=== PATIENT | male | born 1970 | race Caucasian/White ===

== ENCOUNTER → 2016-12-27 | Outpatient (CLI) | payer OTHER | LOC: BMCIMAGING 14:14 | PROVIDERS: ATTEND Internal Medicine Rheumatology | DX: S62.001K Unspecified fracture of navicular [scaphoid] bone of right wrist, subsequent encounter for fracture with nonunion (principal); M25.741 Osteophyte, right hand ==

== ENCOUNTER → 2017-04-01 | Outpatient (CLI) | payer OTHER | LOC: FIMAGING 12:45 | PROVIDERS: ATTEND Orthopaedic Surgery | DX: Z01.818 Encounter for other preprocedural examination (principal); M17.12 Unilateral primary osteoarthritis, left knee; M25.462 Effusion, left knee; M23.42 Loose body in knee, left knee ==

== ENCOUNTER 2017-04-08 10:05 | Inpatient (IN) | payer OTHER ==
--- NOTE | 2017-04-08 06:38 | PDIAF ---
- Diagnosis Diagnosis: left knee djd Code Status: Full Code - Medication Management Discharge Medications: Medications to Continue on Transfer Aspirin [Aspirin 81mg (OTC)] 81 mg PO DAILY 11/19/12 [Last Taken 11/18/12] Mes[place]-3 Fatty Acids [Fish Oil 1000 mg (OTC)] 1,000 mg PO DAILY 11/19/12 [Last Taken 11/12/12] Adalimumab [Humira] 40 mg SQ Q14D 03/21/17 [Last Taken Unknown] Atorvastatin Calcium [Lipitor 20 mg (*)] 20 mg PO DAILY 03/21/17 [Last Taken Unknown] Ibuprofen [Motrin (*)] 200 mg PO DAILY PRN 03/21/17 [Last Taken Unknown] Lisinopril [Zestril 20 mg (*)] 20 mg PO DAILY 03/21/17 [Last Taken Unknown] Multivitamins [Multivitamin (*)] 1 each PO DAILY 03/21/17 [Last Taken Unknown] Discharge Medications: Refer to the Discharge Home Medication list for PRN reason. - Orders Services needed: Home Care, Physical Therapy Home Care Face to Face: I certify that this patient was under my care and that I had the required [id number] encounter meeting the encounter requirements on the discharge day. My findings support the fact that the patient is homebound as defined in Home Care Face to Face Continued: CMS Chapter 7 Medicare Benefits Manual 30.1.1 , The condition of the patient is such that there exists a normal inability to leave home and consequently, leaving home would require a considerable and taxing effort. Activity/Weight Bearing Restrictions: wbat. rom as tolerated. daily dressing changes. no soaking or immersion. f/u at two weeks. seek attn for increasing redness, swelling, drainage, discharge - Follow Up Care Current Providers and Referrals: Wei Lopez MD [Primary Care Provider] -
--- NOTE | 2017-04-08 06:38 | PDHPUP ---
History & Physical Update H&P update statement: This history and physical update is based on an assessment of the patient which was completed after admission or registration (within 24 hours), but prior to the surgery/procedure.
[~2017-04-08 10:05] MED LIST: ROPIVACAINE 0.2% 80 MG, EPINEPHrine 0.2 MG, KETOROLAC TROMETHAMINE 30 MG, morphINE 10 M... IU ONE; TRANEXAMIC ACID 1,000 MG in NS 100 ML IV ONE
[2017-04-08] MEDS ORDERED: FAMOTIDINE 20 MG TAB PO ONE (12:49)
[2017-04-08] MEDS ORDERED: ACETAMINOPHEN 325 MG TAB PO ONE (12:49)
[2017-04-08] MEDS ORDERED: ceFAZolin 2 GM/SWFI 2 GM/20 ML SYR IVP ONE (12:49)
[2017-04-08] MEDS ORDERED: LR 1,000 ML IV ONE (12:50)
[2017-04-08] MEDS ORDERED: MIDAZOLAM 2 MG/2 ML VIAL IVP ONE (13:31)
--- NOTE | 2017-04-08 13:33 | PDANEPAE ---
ANE Past Medical History - Cardiovascular History Hx Hypertension: Yes Hx Arrhythmias: Yes Hx Chest Pain: No Hx Coronary Artery / Peripheral Vascular Disease: No Hx CHF / Valvular Disease: No Hx Palpitations: No - Pulmonary History Hx COPD: No Hx Asthma/Reactive Airway Disease: No Hx Recent Upper Respiratory Infection: No Hx Oxygen in Use at Home: No Hx Sleep Apnea: No Sleep Apnea Screening Result - Last Documented: Negative - Neurologic History Hx Cerebrovascular Accident: No Hx Seizures: No Hx Dementia: No - Endocrine History Hx Diabetes: No Hypothyroid: No Hyperthyroid: No Obesity: yes, mild - Renal History Hx Renal Disorders: No - Liver History Hx Hepatic Disorders: No - Neurological & Psychiatric Hx Hx Neurological and Psychiatric Disorders: No - Cancer History Hx Cancer: No - Congenital Disorder History Hx Congenital Disorders: No - GI History GERD: no Hx Gastrointestinal Disorders: No - Chronic Pain History Chronic Pain: No - Surgical History Prior Surgeries: CARDIAC ABLATION (PVC). TENDON TO RIGHT HAND REPAIR ANE Review of Systems Review of Systems: - Exercise capacity METS (RN): 5 METS ANE Patient History - Allergies Allergies/Adverse Reactions: No Known Allergies Allergy (Unverified 11/19/12 10:49) - Home Medications Home Medications: Aspirin [Aspirin 81mg (OTC)] 81 mg PO DAILY 11/19/12 [Last Taken 11/18/12] Welda-3 Fatty Acids [Fish Oil 1000 mg (OTC)] 1,000 mg PO DAILY 11/19/12 [Last Taken 04/01/17] Adalimumab [Humira] 40 mg SQ Q14D 03/21/17 [Last Taken 03/11/17] Atorvastatin Calcium [Lipitor 20 mg (*)] 20 mg PO DAILY 03/21/17 [Last Taken 08/20 06:45] Ibuprofen [Motrin (*)] 200 mg PO DAILY PRN 03/21/17 [Last Taken 04/01/17] Lisinopril [Zestril 20 mg (*)] 20 mg PO DAILY 03/21/17 [Last Taken 04/08/17 06: 45] Multivitamins [Multivitamin (*)] 1 each PO DAILY 03/21/17 [Last Taken 04/01/17] - NPO status NPO Since - Liquids (Date): 04/07/17 NPO Since - Liquids (Time): 11:55 NPO Since - Solids (Date): 04/07/17 NPO Since - Solids (Time): 22:00 - Smoking Hx Smoking Status: Never smoked - Family Anes Hx Family Hx Anesthesia Complications: NONE ANE Labs/Vital Signs - Vital Signs Blood Pressure: 138/90 Heart Rate: 57 Respiratory Rate: 16 O2 Sat (%): 97 Height: 182.88 cm Weight: 107.955 kg ANE Physical Exam - Airway Neck exam: FROM Mallampati Score: Class 2 Mouth exam: normal dental/mouth exam - Pulmonary Pulmonary: no respiratory distress, no rales or rhonchi, clear to auscultation - Cardiovascular Cardiovascular: regular rate and rhythym, no murmur, rub, or gallop - ASA Status ASA Status: II ANE Anesthesia Plan Anesthesia Plan: MAC, spinal
[2017-04-08] MEDS ORDERED: CALCIUM CHLORIDE 1 GM/10 ML INJ ONE (13:39)
[2017-04-08] MEDS ORDERED: THROMBIN (BOVINE) 5,000 UNIT VIAL TP ONE (13:39)
[2017-04-08] MEDS ORDERED: fentaNYL 100 MCG/2 ML INJ ONE (13:56)
[2017-04-08] MEDS ORDERED: LIDOCAINE 2% 5 ML SDV ONE ×2 (14:11)
[2017-04-08] MEDS ORDERED: PROPOFOL/EMULSION 500 MG/50 ML BOTTLE IV ONE (14:11)
[2017-04-08] MEDS: ceFAZolin 1 GM/5 ML SYR ONE ×2 (14:51→15:01)
[2017-04-08] MEDS ORDERED: ROPIVACAINE HCL 150 MG/30 ML INJ ONE (15:01)
[2017-04-08] MEDS ORDERED: OXYCODONE/APAP 5/325 TAB PO PRN (15:04)
[2017-04-08] MEDS ORDERED: HYDROCODONE/APAP 5/325 TAB PO PRN (15:04)
[2017-04-08] MEDS ORDERED: NALOXONE HCL 0.4 MG/ML INJ IVP PRN ×2 (15:04→16:11)
[2017-04-08] MEDS ORDERED: ONDANSETRON 4 MG/2 ML VIAL IVP PRN ×2 (15:04→15:42)
[2017-04-08] MEDS ORDERED: fentaNYL 100 MCG/2 ML INJ IVP PRN (15:04)
[2017-04-08] MEDS ORDERED: ACETAMINOPHEN 500 MG TAB PO PRN (15:04)
[2017-04-08] MEDS ORDERED: PROMETHAZINE HCL 25 MG/ML INJ IVP PRN ×2 (15:04→15:42)
[2017-04-08] MEDS ORDERED: LR 500 ML IV PRN ×2 (15:04→16:11)
[2017-04-08] MEDS ORDERED: BISACODYL 10 MG SUPP PR PRN (15:42)
[2017-04-08] MEDS ORDERED: TEMAZEPAM 15 MG CAP PO PRN (15:42)
[2017-04-08] MEDS ORDERED: ONDANSETRON DISINTEGRATING 4 MG TAB PO PRN (15:42)
[2017-04-08] MEDS ORDERED: diphenhydrAMINE 25 MG CAP PO PRN (15:42)
[2017-04-08] MEDS ORDERED: LACTULOSE 20 GM/30 ML UDCUP PO PRN (15:42)
[2017-04-08] MEDS ORDERED: POLYETHYLENE GLYCOL 3350 17 GM PKT PO PRN (15:42)
[2017-04-08] MEDS ORDERED: MAGNESIUM HYDROXIDE 30 ML UDCUP PO PRN (15:42)
[2017-04-08] MEDS ORDERED: METOCLOPRAMIDE 10 MG/2 ML VIAL IVP PRN (15:42)
[2017-04-08] MEDS ORDERED: DIPHENOXYLATE/ATROPINE LOMOTIL 1 TAB PO PRN (15:42)
[2017-04-08] MEDS ORDERED: DIAZEPAM 5 MG TAB PO PRN (15:42)
[2017-04-08] MEDS ORDERED: PROMETHAZINE HCL 25 MG SUPPR PR PRN (15:42)
[2017-04-08] MEDS ORDERED: TRANEXAMIC ACID 650 MG TAB PO SCH (15:45)
[2017-04-08] MEDS ORDERED: LR 1,000 ML IV SCH (16:00)
--- NOTE | 2017-04-08 16:13 | POSTANESTH ---
Post Anesthetic Evaluation Cardiovascular Status: Similar to Pre-Op Cond Respiratory Status: Normal, Stable Level of Consciousness/Mental Status: Can Participate in Eval Pain Control: Adequate, Prn Tx Ordered Nausea/Vomiting Control: Adequate, Prn Tx Ordered Complications Possibly Related to Anesthesia: None Noted (sinus bradycardia)
[2017-04-08] MEDS: ACETAMINOPHEN 325 MG TAB PO SCH ×2 (19:22→22:45)
[2017-04-08 19:31] VITALS: RESP 14
[2017-04-08] MEDS: SENNOSIDES/DOCUSATE SODIUM TAB PO SCH (19:41)
[2017-04-08] MEDS: oxyCODONE IR 5 MG TAB PO PRN ×2 (19:43→22:45)
[2017-04-08] MEDS: FAMOTIDINE 20 MG TAB PO SCH (19:43)
[2017-04-08] MEDS: TRANEXAMIC ACID 650 MG TAB PO SCH (22:45)
[2017-04-08] MEDS: ceFAZolin 2 GM/DEXTROSE 100 ML IV SCH (22:46)
[2017-04-09] MEDS: oxyCODONE IR 5 MG TAB PO PRN ×3 (03:03→10:37)
[2017-04-09] MEDS: ceFAZolin 2 GM/DEXTROSE 100 ML IV SCH (04:50)
[2017-04-09] MEDS: ACETAMINOPHEN 325 MG TAB PO SCH ×2 (04:51→11:46)
[2017-04-09 05:07] LABS: HEMATOCRIT 40.2 % (40.0-51.0); HEMOGLOBIN 13.8 g/dL (13.7-17.5)
--- NOTE | 2017-04-09 07:10 | PDIAF ---
- Diagnosis Diagnosis: left knee djd Code Status: Full Code - Medication Management Discharge Medications: Medications to Continue on Transfer [place]-3 Fatty Acids [Fish Oil 1000 mg (*)] 1,000 mg PO DAILY 11/19/12 [Last Taken 04/01/17] Adalimumab [Humira] 40 mg SQ Q14D 03/21/17 [Last Taken 03/11/17] Atorvastatin Calcium [Lipitor 20 mg (*)] 20 mg PO DAILY 03/21/17 [Last Taken 08/20 06:45] Lisinopril [Zestril 20 mg (*)] 20 mg PO DAILY 03/21/17 [Last Taken 04/08/17 06: 45] Multivitamins [Multivitamin (*)] 1 each PO DAILY 03/21/17 [Last Taken 04/01/17] Amoxicillin/Clavulanate Pot [Augmentin 875 MG TAB (*)] 875 mg PO BID 04/08/17 [ Last Taken 04/08/17] oxyCODONE IR [Oxycodone Ir (*)] 5 - 10 mg PO Q3HRS PRN #90 tab 04/09/17 [Last Taken Unknown] Discharge Medications: Refer to the Discharge Home Medication list for PRN reason. - Orders Services needed: Home Care, Physical Therapy Home Care Face to Face: I certify that this patient was under my care and that I had the required [id number] encounter meeting the encounter requirements on the discharge day. My findings support the fact that the patient is homebound as defined in Home Care Face to Face Continued: CMS Chapter 7 Medicare Benefits Manual 30.1.1 , The condition of the patient is such that there exists a normal inability to leave home and consequently, leaving home would require a considerable and taxing effort. Diet Recommendation: no restrictions on diet Diet Texture: Regular Texture Diet Activity/Weight Bearing Restrictions: aspirin 325 mg po daily for six weeks. wbat. rom as tolerated. daily dressing changes. no soaking or immersion. f/ u at two weeks. seek attn for increasing redness, swelling, drainage, discharge - Follow Up Care Current Providers and Referrals: Wei Lopez MD [Primary Care Provider] -
[2017-04-09] MEDS ORDERED: AMOXICILLIN/CLAVULANATE POT 875/125 MG TAB PO ONE (07:40)
[2017-04-09] MEDS: TRANEXAMIC ACID 650 MG TAB PO SCH (08:04)
[2017-04-09] MEDS: FAMOTIDINE 20 MG TAB PO SCH (08:22)
[2017-04-09] MEDS: SENNOSIDES/DOCUSATE SODIUM TAB PO SCH (08:22)
[2017-04-09] MEDS ORDERED: LISINOPRIL 20 MG TAB PO SCH (09:00)
[2017-04-09] MEDS ORDERED: OMEGA-3 FATTY ACIDS 1,000 MG CAP PO SCH (09:00)
[2017-04-09] MEDS ORDERED: AMOXICILLIN/CLAVULANATE POT 875/125 MG TAB PO SCH (09:00)
[2017-04-09] MEDS ORDERED: ATORVASTATIN CALCIUM 20 MG TAB PO SCH (09:00)
[2017-04-09] MEDS ORDERED: MULTIVITAMINS 1 EACH TAB PO SCH (09:00)
[2017-04-09] MEDS ORDERED: ASPIRIN EC 325 MG TAB PO SCH (09:00)
--- NOTE | 2017-04-09 10:20 | ASMTCMCOM ---
CM Note CM Note Notes: Chart reviewed.S/P TKA . Patient medically cleared for discharge to home with [facility]. Referrals placed acceptance pending. Address and phone number verified with patient. Plan home with [facility]. CM available should other needs atise. Date Signed: 04/09/2017 10:20 AM Electronically Signed By:Karen Corado RN
[2017-04-09 11:49] VITALS: BP 103/71; PULSE 61; TEMP 98.2; O2SAT 91
--- NOTE | 2017-04-09 12:58 | GDS ---
[f rep st] DISCHARGE SUMMARY ADMITTING DIAGNOSIS: Left knee degenerative joint disease. DISCHARGE DIAGNOSIS: Left knee degenerative joint disease. PROCEDURE: Left total knee arthroplasty, MAKOplasty. OPERATIVE INDICATIONS: The patient is a 46-year-old gentleman who has end-stage arthritis and intrac table pain to his left knee. Clinical and radiographic features are consistent with this. He has fa iled all attempts at conservative management. I have, therefore, recommended total knee replacement. He understood the risks, benefits, alternatives, and wished to proceed. Written consent was signed and placed in the patient's chart. HOSPITAL COURSE: The patient was admitted to the hospital floor after uncomplicated total knee arthr oplasty. He tolerated the procedure well. At the time of discharge, he is tolerating an oral diet. His pain is well controlled on oral medicines. He is voiding without difficulty. His dressing is c lean, dry, and intact. He has a negative King's bilaterally, intact plantar flexion, dorsiflexion, EHL function. He has been cleared by Physical Therapy. MEDICATIONS: Oxycodone 5 mg 1-2 every 4 hours p.r.n. pain. Aspirin 325 mg p.o. daily. FOLLOWUP: At 2 weeks. Seek attention for increasing redness, swelling, drainage, discharge, or othe r focal complaint. /[id number]/MODL
--- NOTE | 2017-04-09 16:31 | ASDISCHSUM ---
Discharge Information Plan Status:Home with Home Health Medically Cleared to Leave:04/08/2017 Discharge Date:04/09/2017 12:07 PM CM D/C Disposition:Home Health Service ADT D/C Disposition:Home Health Service Projected Discharge Date:04/09/2017 11:00 AM Transportation at D/C:Family Discharge Delay Reason: Follow-Up Date:04/09/2017 11:00 AM Discharge Slot: Final Diagnosis: Placement Information Referral Type:*Home Health Care Services Referral ID:[id number] Provider [facility] [address] Address 2: City:[place] Selection Factors: State:[place] Patient Contact Information Contact Name:MADI Relationship: Address:[address] City:[place] Alternate Phone: State/Zip Code:[place] [address] Email: Financial Information Financial Class:[place], Located [facility] Primary Plan Desc:[facility] Primary Plan Number:[id number] Secondary Plan Desc: Secondary Plan Number: Assessment Information LACE LACE Length of stay for Answers: Less than 1 day current admission Acuity / Level of Care Answers: No. Emergency dept visits in Answers: 0 last 6 months Date Signed: 04/09/2017 10:15 AM Electronically Signed By:Karen Corado RN Case Management Discharge Plan Note Case Management Discharge Discharge Order Complete? Answers: Yes Patient to Obtain Answers: Independently Medications Transportation Arranged Answers: Family/Friends Faxed Final Orders Answers: Yes Agency/Facility Transfer Answers: Yes Report Printed & Faxed to Receiving Agency Family Notified Answers: Yes Date Signed: 04/09/2017 10:17 AM Electronically Signed By:Karen Corado RN [facility] CM Progress Note CM Note CM Note Notes: Chart reviewed.S/P TKA . Patient medically cleared for discharge to home with [facility]. Referrals placed acceptance pending. Address and phone number verified with patient. Plan home with [facility]. CM available should other needs atise. Date Signed: 04/09/2017 10:20 AM Electronically Signed By:Karen Corado RN Intervention Information
[2017-04-10] MEDS ORDERED: Adalimumab [Humira] 40 MG SQ SCH (07:30)
--- NOTE | 2017-04-10 20:31 | GOP ---
[f rep st] OPERATIVE REPORT DATE OF OPERATION: 04/08/2017 SURGEON: Wilner Márquez MD MANAGER GROCERY: Melchor Diaz, CONTAINER COORDINATOR, HARDENER HELPER, assistant operations manager who was a medical necessity for the entiret y of the case. Also present is SHELTON Carney. PREOPERATIVE DIAGNOSIS: Left knee degenerative joint disease. POSTOPERATIVE DIAGNOSIS: Left knee degenerative joint disease. PROCEDURE PERFORMED: Left total knee arthroplasty, MAKOplasty. FINDINGS: SPECIMENS: To Pathology, none. DESCRIPTION OF PROCEDURE: The patient was identified in the preanesthesia area. The left knee clear ly demarcated as the operative site with indelible marker. He was given 2 g of Ancef intravenously e n route to the operative suite. In the OR, spinal anesthetic and general endotracheal anesthesia was administered. He was positioned in the supine position. Attention was turned to the left knee and lower extremity which was sterilely prepped and draped in the usual fashion. A tourniquet was applie d to the upper limb. The limb was exsanguinated with an Esmarch bandage, tourniquet inflated to 275 mmHg. Standard anterior midline incision was made. Thick subcutaneous flaps were elevated followed by medial parapatellar arthrotomy. Subperiosteal elevation was carried out to the mid coronal plane. There were moderate and advanced changes throughout the knee. A separate percutaneous incision was made through the mid femur and mid chappell, and 2 pins were placed in each area and the femoral and tib ial reference arrays were affixed. The femoral and tibial checkpoints were then placed. All bony la ndmarks were entered in the computer. The knee was balanced with the flexion extension and manipulat ion of the components using the MAKOplasty protocol. Resections were made for a size 5 femur, includ ing a trochlear notch cut and a size 6 tibia. All bony fragments were withdrawn. Trial reduction wa s carried out with a 6 x 9 mm polyethylene. This was felt to be stable and appropriate. The patella was then everted, cut in a freehand cutting technique. Drill holes were made for a 38 mm plastic pa tella. The trial components were withdrawn. The bony surfaces thoroughly cleansed and dried. In se quential fashion the tibial, femoral and patellar components were cemented. The final 6 x 9 mm polye thylene spacer was then placed and confirmed to be fully seated. The knee was brought through extens ion. The additional cement was sharply excised and while the cement was curing, the knee was instill ed with a joint cocktail of ropivacaine, morphine, Toradol, and epinephrine. The medial parapatellar arthrotomy closed using #1 Ethibond with the knee in 20 degrees of flexion. The knee was instilled with a platelet-rich plasma solution. Subcutaneous tissue closed using 0 Monocryl and the skin stapl ed. A sterile dressing was applied. The patient was awakened, extubated, taken to recovery in good stable condition. OPERATIVE INDICATIONS: The patient is a 46-year-old gentleman who has persistent pain and discomfort across his knee. He has clinical radiograph features consistent with advanced arthritis. He has fa iled all attempts at conservative management. I have therefore recommended operative intervention. I have outlined the surgical procedure, risks, benefits, and alternatives. He wished to proceed. Wr brigidaen consent was signed and placed in the patient's chart. TOTAL TOURNIQUET TIME: 65 minutes. COMPLICATIONS: None. IMPLANTS: Baldev Triathlon PS femoral component size 5, tibia size 6 x 9 mm polyethylene and a 38 x 11 mm polyethylene patella. DISPOSITION: To the recovery room, then the floor. He is weightbearing as tolerated. Range of brissa on as tolerated. /[id number]/MODL
== END 2017-04-09 12:07 | disposition home health service (06) | DRG 470 ==
LOC: F3N 12:36
PROVIDERS: ADMIT Orthopaedic Surgery; ATTEND Orthopaedic Surgery
PROC: 0SRD0J9 Replacement of Left Knee Joint with Synthetic Substitute, Cemented, Open Approach (ICD-10-PCS; principal; 2017-04-08 14:15)
PROC: 8E0YXCZ Robotic Assisted Procedure of Lower Extremity (ICD-10-PCS; principal; 2017-04-08 14:15)
PROC: 3E0U3GC Introduction of Other Therapeutic Substance into Joints, Percutaneous Approach (ICD-10-PCS; principal; 2017-04-08 14:15)
PROC: 6A550Z2 Pheresis of Platelets, Single (ICD-10-PCS; principal; 2017-04-08 14:15)
DX: M17.12 Unilateral primary osteoarthritis, left knee (principal); I10 Essential (primary) hypertension; E66.09 Other obesity due to excess calories; Z68.32 Body mass index [BMI] 32.0-32.9, adult
CPT/HCPCS: 97110-GP; 97116-GP; 97161-GP; 97165-GO; C1713; J0171; J0690; J1885; J2250; J2704; J2795; J3010

== ENCOUNTER → 2017-05-22 | Outpatient (CLI) | payer OTHER | LOC: BMCIMAGING 13:19 | PROVIDERS: ATTEND Physician Assistant | DX: Z47.1 Aftercare following joint replacement surgery (principal); Z96.652 Presence of left artificial knee joint ==

== ENCOUNTER → 2017-07-03 | Outpatient (CLI) | payer OTHER | LOC: BMCIMAGING 09:40 | PROVIDERS: ATTEND Physician Assistant | DX: Z47.1 Aftercare following joint replacement surgery (principal); Z96.652 Presence of left artificial knee joint ==

== ENCOUNTER → 2017-08-23 | Outpatient (CLI) | payer OTHER | LOC: BMCIMAGING 16:34 | PROVIDERS: ATTEND Family Medicine | DX: M71.22 Synovial cyst of popliteal space [Baker], left knee (principal); Z96.652 Presence of left artificial knee joint ==

== ENCOUNTER → 2017-10-01 | Outpatient (CLI) | payer OTHER | LOC: BMCIMAGING 09:14 | PROVIDERS: ATTEND Physician Assistant | DX: Z47.1 Aftercare following joint replacement surgery (principal); Z96.652 Presence of left artificial knee joint; M25.462 Effusion, left knee ==